=== PATIENT | male | born 1995 | race Caucasian/White ===

== ENCOUNTER 2017-11-18 14:30 | Emergency (ER) | payer BC, MEDICAID ==
[2017-11-18 14:35] VITALS: BP 118/71; PULSE 70; RESP 18; TEMP 97.7; O2SAT 96
--- NOTE | 2017-11-18 14:51 | EDPHY ---
H & P Stated Complaint: pain on inner l cheek area/gums/mouth Time Seen by Provider: 11/18/17 14:51 HPI/ROS: HPI: This is a 22-year-old male who presents with Chief Complaint: pain on inner l cheek area/gums/mouth Location: Left cheek Quality: Pain Duration: 1-2 weeks Signs and Symptoms: No fever, no jaw swelling, no difficulty swallowing, + mild discomfort with opening mouth/chewing food, no ear pain, no drooling, shortness of breath, no facial swelling Timing: Gradual onset Severity: [id number] Context: Patient recently moved to the area from [place] and reports left inner cheek as well as left tooth causing mild dull aching pain that is nonradiating in nature accompanied by soreness on the inside of the left gum. Patient's Maxwell leaves is related to his wisdom teeth. Patient does not note some increased pain with chewing on the left side of the mouth. Patient has tried nothing for the symptoms. Patient has not called his dentist and does not have a PCP in the area. Modifying Factors: None Comment: ROS: see HPI Constitutional: No fever, no chills, no weight loss Eyes: No blurred vision Respiratory: No shortness of breath, no cough Cardiovascular: No chest pain Gastrointestinal: No nausea, no vomiting, no diarrhea Genitourinary: No dysuria Extremities: No myalgias Neurologic: No weakness, no numbness Skin: No rashes Hematologic: No bruising, no bleeding MEDICAL/SURGICAL/SOCIAL HISTORY: Medical history: Generally healthy. Does not take any regular medications. Surgical history: Denies Social history: Employed. CONSTITUTIONAL: Well-appearing young adult male, awake and alert, no obvious distress HEENT: Atraumatic and normocephalic, PERRL, EOMI. Tympanic membranes clear. Oropharynx clear, no jaw swelling, no malocclusion, no TMJ tenderness, no dental cavity, no gingival inflammation, no aphthous ulcer, no vesicles, no exudate and moist pink mucosa. Patient reports pain at number #[id number] but no abnormality seen. Airway patent. No lymphadenopathy. No meningismus. Cardiovascular: Normal S1/S2, regular rate, regular rhythm, without murmur rub or gallop. PULMONARY/CHEST: Symmetrical and nontender. Clear to auscultation bilaterally. Good air movement. No accessory muscle usage. ABDOMEN: Soft, nondistended, nontender, no rebound, no guarding, no peritoneal signs, no masses or organomegaly. No CVAT. EXTREMITIES: 2/2 pulses, strength 5/5, no deformities, no clubbing, no cyanosis or edema. NEUROLOGICAL: no focal neuro deficits. GCS 15. SKIN: Warm and dry, no erythema. no rash. Good capillary refill. Source: Patient Exam Limitations: No limitations - Personal History Current Tetanus/Diphtheria Vaccine: Yes - Medical/Surgical History Hx Asthma: No Hx Chronic Respiratory Disease: No Hx Diabetes: No Hx Cardiac Disease: No Hx Renal Disease: No Hx Cirrhosis: No Hx Alcoholism: No Hx HIV/AIDS: No Hx Splenectomy or Spleen Trauma: No Other PMH: denies - Social History Smoking Status: Current every day smoker Constitutional: Initial Vital Signs Temperature (C) 36.5 C 11/18/17 14:33 Heart Rate 70 11/18/17 14:33 Respiratory Rate 18 11/18/17 14:33 Blood Pressure 118/71 11/18/17 14:33 O2 Sat (%) 96 11/18/17 14:33 O2 Delivery Mode Room Air Allergies/Adverse Reactions: No Known Allergies Allergy (Unverified 11/18/17 14:33) Home Medications: Medication Instructions Recorded Amoxicillin Trihydrate [Amoxil] 500 mg PO TID 7 Days cap 11/18/17 Mouthwash Compounding Base 227 10 ml MM QID #120 ml 11/18/17 [Mouthwash-Om] Medical Decision Making ED Course/Re-evaluation: Patient given amoxicillin and a prescription for mouthwash. No signs of airway compromise/facial cellulitis/dental abscess/meningitis/ dehydration/herpes simplex/malignancy/TMJ dysfunction/sialolithiasis Tolerating p.o. without difficulty Advised to follow up with a dentist as soon as possible This patient was seen under the supervision of my secondary supervising physician. I evaluated care for this patient independently. Differential Diagnosis: Differential diagnosis includes but is not limited to dental cavity, tooth impaction, abscess ulcer, stomatitis, herpes simplex. Departure - Departure Disposition: Home, Routine, Self-Care Clinical Impression: Odontalgia, Stomatitis Condition: Good Instructions: Canker Sores (ED), Toothache (ED), Oral Mucositis (ED) Additional Instructions: Please follow-up with your dentist as soon as possible. Dental x-rays may need to be taken in order to visualize your wisdom teeth, evaluate for dental cavities, determined if you have a tooth impaction. Establish care at [facility] as your primary care provider. Take Tylenol 650 mg every 4 hours and/or Ibuprofen 600 mg every 8 hours with food as needed for pain. Referrals: [facility],. [Clinic] - As per Instructions Prescriptions: Amoxicillin Trihydrate [Amoxil] 500 mg PO TID 7 Days cap Mouthwash Compounding Base 227 [Mouthwash-Om] 10 ml MM QID #120 ml
== END 2017-11-18 15:40 | disposition home or self-care (01) ==
DX: K08.89 Other specified disorders of teeth and supporting structures (principal); K12.1 Other forms of stomatitis; F17.200 Nicotine dependence, unspecified, uncomplicated